=== PATIENT | male | born 1985 | race Caucasian/White ===

== ENCOUNTER 2020-01-27 19:44 | Emergency (ER) | payer MEDICAID ==
[~2020-01-27] VITALS: Ht 180.3 cm; Wt 81.8 kg
[~2020-01-27 19:44] MED LIST: CLIN150C8 PO; HYDR-4383 PO; ONDA8TAB13 PO
[2020-01-27 20:25] LABS: BASOPHILS # (AUTO) 0.1 X10'3 (0-0.2); BASOPHILS % (AUTO) 0.6 % (0-1); EOSINOPHILS # (AUTO) 0.1 X10'3 (0-0.9); EOSINOPHILS % (AUTO) 0.6 % (0-6); HEMATOCRIT 49.2 % (42.0-52.0); HEMOGLOBIN 16.9 g/dl (14.0-17.9); LYMPHOCYTES # (AUTO) 1.6 X10'3 (1.1-4.8); LYMPHOCYTES % (AUTO) 15.1 % (21-51); MEAN CORPUSCULAR HEMOGLOBIN 30.5 PG (27.0-31.0); MEAN CORPUSCULAR HGB CONC 34.3 g/dL (33.0-36.5); MEAN PLATELET VOLUME 7.7 FL (7.4-10.4); MONOCYTES # (AUTO) 0.5 X10'3 (0-0.9); MONOCYTES % (AUTO) 4.8 % (2-12); NEUTROPHILS # (AUTO) 8.2 X10'3 (1.8-7.7); NEUTROPHILS % (AUTO) 78.9 % (42-75); PLATELET COUNT 331 X10'3 (140-440); RED BLOOD COUNT 5.52 X10'6 (4.70-6.10); RED CELL DISTRIBUTION WIDTH 13.4 % (11.5-14.5); WHITE BLOOD COUNT 10.4 X10'3 (4.5-11.0)
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
[2020-01-27 20:44] LABS: ALANINE AMINOTRANSFERASE 23 U/L (12-78); ALBUMIN 4.3 G/DL (3.4-5.0); ALBUMIN/GLOBULIN RATIO 1.1 (1.1-1.5); ALKALINE PHOSPHATASE 58 IU/L (46-116); ANION GAP 8 (8-16); ASPARTATE AMINO TRANSFERASE 26 U/L (10-37); BILIRUBIN,TOTAL 0.4 MG/DL (0.1-1.0); BLOOD UREA NITROGEN 13 MG/DL (7-18); BUN/CREATININE RATIO 11.6 (5.4-32.0); CALCIUM 9.2 MG/DL (8.5-10.1); CHLORIDE 106 MMOL/L (99-107); CREATININE 1.12 MG/DL (0.60-1.10); GLUCOSE 102 MG/DL (70-104); POTASSIUM 3.8 MMOL/L (3.5-5.1); SODIUM 143 MMOL/L (135-145); TOTAL CARBON DIOXIDE 28.8 MMOL/L (24-32); TOTAL PROTEIN 8.2 G/DL (6.4-8.2); eGFR 76 ML/MIN
[2020-01-27 20:50] LABS: ETHANOL < 0.010 GM/DL (0.0-0.010)
[2020-01-27] MEDS ORDERED: LORazepam 1 MG tablet PO ONE (20:55)
[2020-01-27] MEDS ORDERED: diphenhydrAMINE 25mg capsule PO ONE (20:55)
[2020-01-27] MEDS ORDERED: OLANZapine 2.5MG tablet PO ONE (20:55)
--- NOTE | 2020-01-27 21:11 | NUR ---
Patient stands up, he is labile and loud at times, cussing at some unknown person about a woman. Zyprexa and Benadryl given PO. We are awaiting patient to void for a tox screen. Patient is drinking water.
[2020-01-27] MEDS ORDERED: ONDA4TAB12 PO (21:20)
[2020-01-27 21:44] LABS: CLARITY,URINE CLEAR (Clear); COLOR,URINE YELLOW (Yellow); GLUCOSE, URINE NEGATIVE (Neg); KETONES,URINE TRACE mg/dl (Neg); LEUKOCYTE ESTERASE ,URINE NEGATIVE (Neg); NITRITES, URINE NEGATIVE (Neg); OCCULT BLOOD,URINE NEGATIVE (Neg); PH,URINE 5.5 (4.8-8.0); PROTEIN,URINE TRACE mg/dl (Neg); UROBILINOGEN,URINE 0.2 E.U/dL (0.2-1.0)
[2020-01-27 21:47] LABS: UA COLLECTION TYPE VOIDED
[2020-01-27 21:49] LABS: BACTERIA,URINE 1+ /HPF (Neg); CAL OXALATE CRYSTALS 1+ /HPF (NEGATIVE); RBC,URINE NONE SEEN /HPF (0-2); SQUAMOUS EPITHELIAL CELL,UR FEW /LPF (FEW); WBC,URINE 0-4 /HPF (0-4)
[2020-01-27 22:01] LABS: URINE AMPHETAMINE SCREEN NEGATIVE (Neg); URINE BARBITUATE SCREEN NEGATIVE (Neg); URINE BENZODIAZEPINES SCREEN NEGATIVE (Neg); URINE CANNABINOID SCREEN POSITIVE (Neg); URINE COCAINE SCREEN NEGATIVE (Neg); URINE METHADONE SCREEN NEGATIVE (Neg); URINE OPIATE SCREEN NEGATIVE (Neg); URINE PHENCYCLIDINE SCREEN NEGATIVE (Neg)
--- NOTE | 2020-01-27 22:22 | NUR ---
Patient is now sleeping on his right side. Patients color is good. He is warm and dry.
--- NOTE | 2020-01-28 01:09 | NUR ---
Patient is sleeping quietly on his right side. No distress noted.
--- NOTE | 2020-01-28 02:05 | NUR ---
Terry Suicide Scoring not complete. Patient is not giving consistant statements at this time.
--- NOTE | 2020-01-28 02:18 | NUR ---
Patient is sleeping supine in bed. Frequent rounding for patient safety.
--- NOTE | 2020-01-28 06:37 | NUR ---
Nursing Note: Pt laying in bed, eyes closed, RR even and unlabored, no S&S of distress. Will continue to monitor.
--- NOTE | 2020-01-28 07:30 | NUR ---
Nursing Note: Pt laying in bed with eyes closed, RR even and unlabored, no S&S of distress, will continue to monitor.
--- NOTE | 2020-01-28 07:45 | NUR ---
Nursing Note: Unable to fully assess the [place] Suicide Severity Rating Scale. Pt responding to internal stimuli making a full assessment difficult.
[2020-01-28] MEDS ORDERED: OLANZapine 2.5MG tablet PO SCH (08:00)
--- NOTE | 2020-01-28 08:30 | NUR ---
Nursing Note: Pt sitting up in bed eating breakfast. He does not use utensils, but is picking up the scrambled eggs and potatoes with his fingers. Pt denies A/V H, but appears to be responding to internal stimuli. While sitting up in bed, he stares straight forward and seems to be talking to someone. Will continue to monitor.
[2020-01-28] MEDS ORDERED: OLANZapine 5mg rapidly disint. tablet PO ONE (09:25)
--- NOTE | 2020-01-28 09:30 | NUR ---
Nursing Note: Pt talking and yelling in bed, appears to be responding to internal stimuli. Notified Dr. Oreilly, received order for Zyprexa Zydis 5 mg PO. Pt also burping repetitively, he indicates this is intentional. He made a confusing statement that seems to indicate that is how he deals with people, unable to ascertain if he is talking about hallucinations or real people. Will continue to monitor.
--- NOTE | 2020-01-28 10:18 | NUR ---
Nursing Note: Pt laying in bed with his eyes open, he occasionally talks to himself. No S&S of distress, RR even and unlabored, will continue to monitor. Addendum: 01/28/20 at 1022 by PBROWN Amend: Pt mumbles to himself, difficult to understand. At one point, he made a comment about "electricity to the brain."
--- NOTE | 2020-01-28 12:13 | NUR ---
Nursing Note: Pt up to the restroom and returned to bed. He is sitting up in his bed, looking off to the side and talking to himself. No S&S of distress, will continue to monitor.
--- NOTE | 2020-01-28 12:58 | NUR ---
Nursing Note: Pt sitting up in bed, no S&S of distress, will continue to monitor.
[2020-01-28] MEDS ORDERED: LORazepam 2 mg/ml vial IM ONE (14:30)
[2020-01-28] MEDS ORDERED: diphenhydrAMINE 50 mg/ml inj IM ONE (14:30)
[2020-01-28] MEDS ORDERED: haloperidol lactate 5mg/ml inj IM ONE (14:30)
--- NOTE | 2020-01-28 15:12 | NUR ---
Nursing Note: Increased agitation, yelling and negative responses to internal stimuli. Notifed Dr. Junior, received order for Ativan 2mg, Benadryl 25 mg and Haldol 5 mg to be give IM. Pt readily accepted medication and verbalized hope that it would help. Pt not laying in bed, he is still talking, but not yelling. Will continue to monitor.
--- NOTE | 2020-01-28 15:45 | NUR ---
Nursing Note: Pt laying on his R side, eyes closed, no S&S of distress, will continue to monitor.
--- NOTE | 2020-01-28 17:11 | NUR ---
Nursing Note: Nurse to Nurse with Derick [facility]. He will present patient to provider. Will continue to monitor.
--- NOTE | 2020-01-28 17:23 | NUR ---
Nursing Note: Clarified with Dr. Guerra what type of cardiac monitoring he requires. He said that he would like continuous pulse oximetry following the administration of Haldol, Ativan, and Benedryl. Will continue to monitor.
--- NOTE | 2020-01-28 17:27 | NUR ---
Nursing Note: Pt laying in bed with a blanket covering his head. RR even and unlabored, no S&S of distress. Pulse ox finger probe attached, O2 level 97%. Will continue to monitor.
--- NOTE | 2020-01-28 20:59 | NUR ---
copmpleted nurse to nurse with [facility] [place]
--- NOTE | 2020-01-28 21:12 | NUR ---
Dunia from [facility] called. Pt was excepted at [facility] By Dennis MASSEY at 210. He will be transfered in the am of 01/28
[2020-01-29 05:57] VITALS: BP 113/64
[2020-01-29] MEDS ORDERED: diphenhydrAMINE 25mg capsule PO PRN (07:25)
[2020-01-29] MEDS ORDERED: OLANZapine 2.5MG tablet PO SCH (08:00)
--- NOTE | 2020-01-29 08:32 | NUR ---
[facility] CLAIMS ADJUDICATOR ETA [id number].
== END 2020-01-29 09:49 ==
LOC: ER 19:45
DX: R45.851 Suicidal ideations (principal); F12.90 Cannabis use, unspecified, uncomplicated; F15.90 Other stimulant use, unspecified, uncomplicated; F11.90 Opioid use, unspecified, uncomplicated; Z86.14 Personal history of Methicillin resistant Staphylococcus aureus infection; Z98.890 Other specified postprocedural states; Z56.0 Unemployment, unspecified; Z79.899 Other long term (current) drug therapy
CPT/HCPCS: 36415; 80053; 80305; 80320; 81001; 84443; 85025; 96372; 99285; J1200; J1630; J2060; Q0163

== ENCOUNTER 2023-06-02 21:19 | Emergency (ER) | payer MEDICAID ==
[~2023-06-02] VITALS: Ht 180.3 cm; Wt 131.8 kg
[2023-06-02 22:05] LABS: MEAN PLATELET VOLUME 8.4 FL (7.4-10.4); RED CELL DISTRIBUTION WIDTH 12.9 % (11.5-14.5)
[2023-06-02 22:07] LABS: BASOPHILS % (AUTO) 0.7 % (0-1); EOSINOPHILS # (AUTO) 0.2 X10'3 (0-0.9); HEMATOCRIT 44.4 % (42.0-52.0); HEMOGLOBIN 15.8 g/dl (14.0-17.9); LYMPHOCYTES # (AUTO) 1.6 X10'3 (1.1-4.8); LYMPHOCYTES % (AUTO) 23.8 % (21-51); MEAN CORPUSCULAR HEMOGLOBIN 30.6 PG (27.0-31.0); MEAN CORPUSCULAR HGB CONC 35.5 g/dL (33.0-36.5); MEAN CORPUSCULAR VOLUME 86.1 FL (78-98); MONOCYTES # (AUTO) 0.8 X10'3 (0-0.9); MONOCYTES % (AUTO) 12.2 % (2-12); NEUTROPHILS # (AUTO) 4.2 X10'3 (1.8-7.7); NEUTROPHILS % (AUTO) 60.3 % (42-75); PLATELET COUNT 271 X10'3 (140-440); RED BLOOD COUNT 5.16 X10'6 (4.70-6.10); WHITE BLOOD COUNT 6.9 X10'3 (4.5-11.0)
[2023-06-02 22:09] LABS: ALANINE AMINOTRANSFERASE 34 U/L (12-78); ALBUMIN/GLOBULIN RATIO 1.1 (1.1-1.5); ALKALINE PHOSPHATASE 73 IU/L (46-116); ANION GAP 11 (8-16); ASPARTATE AMINO TRANSFERASE 50 U/L (10-37); BILIRUBIN,TOTAL 0.8 MG/DL (0.1-1.0); BLOOD UREA NITROGEN 15 MG/DL (7-18); BUN/CREATININE RATIO 11.6 (10.0-20.0); CALCIUM 9.4 MG/DL (8.5-10.1); CHLORIDE 100 MMOL/L (99-107); CREATININE 1.29 MG/DL (0.60-1.10); GLUCOSE 127 MG/DL (70-104); POTASSIUM 3.1 MMOL/L (3.5-5.1); SODIUM 134 MMOL/L (135-145); TOTAL PROTEIN 7.8 G/DL (6.4-8.2); eCRCL 84 ML/MIN; eGFR 63 ML/MIN
[2023-06-02 22:11] LABS: URINE AMPHETAMINE SCREEN POSITIVE (Neg); URINE BARBITUATE SCREEN NEGATIVE (Neg); URINE BENZODIAZEPINES SCREEN NEGATIVE (Neg); URINE CANNABINOID SCREEN POSITIVE (Neg); URINE COCAINE SCREEN NEGATIVE (Neg); URINE METHADONE SCREEN NEGATIVE (Neg); URINE OPIATE SCREEN NEGATIVE (Neg); URINE PHENCYCLIDINE SCREEN NEGATIVE (Neg)
[2023-06-02 22:12] LABS: ETHANOL < 10 MG/DL (<10)
[2023-06-02] MEDS ORDERED: PALI6TAB6 PO (22:52)
[2023-06-02] MEDS ORDERED: DIVA-81 PO (22:54)
[2023-06-02] MEDS ORDERED: HYDR-3686 PO (22:54)
[2023-06-02] MEDS ORDERED: BUSP10TA11 PO (22:54)
[2023-06-02 23:14] LABS: THYROID STIMULATING HORMONE 0.63 ulU/ml (0.34-4.50)
[2023-06-02] MEDS ORDERED: hydrOXYzine 25 MG tablet PO PRN (23:20)
[2023-06-02] MEDS ORDERED: divalproex sod 250mg ER (24-hour) tablet PO SCH (23:21)
[2023-06-02] MEDS ORDERED: potassium Cl 20 mEq SR tablet PO STA (23:40)
[2023-06-02 23:47] LABS: VALPROATE < 3.0 UG/ML (50-100)
[2023-06-03] MEDS: busPIRone 15mg tablet PO SCH ×2 (00:01→09:04)
[2023-06-03 01:14] LABS: BILIRUBIN,URINE MODERATE (Neg); CLARITY,URINE TURBID (Clear); COLOR,URINE YELLOW (Yellow); GLUCOSE, URINE NEGATIVE (Neg); KETONES,URINE >=80 mg/dl (Neg); LEUKOCYTE ESTERASE ,URINE NEGATIVE (Neg); NITRITES, URINE NEGATIVE (Neg); OCCULT BLOOD,URINE TRACE-INTACT (Neg); PH,URINE 6.5 (4.8-8.0); PROTEIN,URINE TRACE mg/dl (Neg)
[2023-06-03 01:15] LABS: UA COLLECTION TYPE VOIDED
[2023-06-03 01:28] LABS: RBC,URINE NONE SEEN /HPF (0-2); WBC,URINE 0-4 /HPF (0-4)
[2023-06-03 01:35] LABS: MUCUS STRANDS NONE SEEN /LPF (Neg); SQUAMOUS EPITHELIAL CELL,UR FEW /LPF (FEW)
[2023-06-03 01:39] LABS: BACTERIA,URINE 2+ /HPF (Neg)
[2023-06-03] MEDS ORDERED: PALIPERIDONE 3 MG TAB.ER.24 PO SCH (08:00)
[2023-06-03 16:38] VITALS: BP 140/94; PULSE 57; RESP 16; TEMP 97.6; O2SAT 96
[2023-06-04] MEDS ORDERED: olanzapine 10mg tablet PO SCH (08:00)
== END 2023-06-03 14:30 | disposition admitted as inpatient to this hospital (09) ==
LOC: ER 21:21 → EEVIPCON 06-03 14:30 → ER 06-03 14:30 → ED HOLD 06-03 14:30 → UNDOADMIN 06-03 14:30
DX: R45.851 Suicidal ideations (principal); Z20.822 Contact with and (suspected) exposure to COVID-19; F12.90 Cannabis use, unspecified, uncomplicated; F15.90 Other stimulant use, unspecified, uncomplicated; F11.90 Opioid use, unspecified, uncomplicated; Z56.0 Unemployment, unspecified; Z86.14 Personal history of Methicillin resistant Staphylococcus aureus infection; Z59.00 Homelessness unspecified; Z98.890 Other specified postprocedural states; Z90.89 Acquired absence of other organs; Z79.899 Other long term (current) drug therapy
CPT/HCPCS: 36415; 80053; 80164; 80305; 80320; 81001; 84443; 85025; 87811; 99285; C2617; G0378

== ENCOUNTER 2023-06-13 00:04 | Emergency (ER) | payer MEDICAID ==
[~2023-06-13] VITALS: Ht 180.3 cm; Wt 129.0 kg
[~2023-06-13 00:04] MED LIST changes: +BUSP10TA11 PO; -CLIN150C8 PO; +DIVA-81 PO; +HYDR-3686 PO; -HYDR-4383 PO; -ONDA8TAB13 PO; +PALI6TAB6 PO
--- NOTE | 2023-06-13 02:42 | NUR ---
The patient is a 37 year old male who self presented for a mental health evaluation. He was discharged from [facility] on 06/06. He has a hx of schizoaffective disorder and methamphetamine use. He admits to meth use since his last dc. He currently is on a 30 day out from the [facility] and has been staying on the streets of [place]. He is hearing voices and states he is suicidal. He had a suicide attempt several years ago by hanging. He has poor community support. He has had poor compliance with his psychiatric medications.
[2023-06-13] MEDS ORDERED: hydrOXYzine 25 MG tablet PO PRN (03:00)
--- NOTE | 2023-06-13 03:19 | NUR ---
The patient is resting on his bed. He is responding to internal stimuli. He was cooperative with nursing staff. Labs drawn and urine collected. Snack given.
[2023-06-13 03:29] LABS: BILIRUBIN,URINE NEGATIVE (Neg); COLOR,URINE YELLOW (Yellow); GLUCOSE, URINE NEGATIVE (Neg); KETONES,URINE NEGATIVE (Neg); LEUKOCYTE ESTERASE ,URINE NEGATIVE (Neg); NITRITES, URINE NEGATIVE (Neg); OCCULT BLOOD,URINE NEGATIVE (Neg); PH,URINE 5.5 (4.8-8.0); PROTEIN,URINE NEGATIVE (Neg); UROBILINOGEN,URINE 0.2 E.U/dL (0.2-1.0)
[2023-06-13 03:33] LABS: BASOPHILS # (AUTO) 0.1 X10'3 (0-0.2); BASOPHILS % (AUTO) 0.7 % (0-1); EOSINOPHILS # (AUTO) 0.1 X10'3 (0-0.9); EOSINOPHILS % (AUTO) 1.7 % (0-6); HEMATOCRIT 44.7 % (42.0-52.0); HEMOGLOBIN 15.2 g/dl (14.0-17.9); LYMPHOCYTES # (AUTO) 2.2 X10'3 (1.1-4.8); LYMPHOCYTES % (AUTO) 25.4 % (21-51); MEAN CORPUSCULAR HEMOGLOBIN 29.9 PG (27.0-31.0); MEAN CORPUSCULAR HGB CONC 34.1 g/dL (33.0-36.5); MEAN CORPUSCULAR VOLUME 87.8 FL (78-98); MEAN PLATELET VOLUME 8.1 FL (7.4-10.4); MONOCYTES # (AUTO) 0.9 X10'3 (0-0.9); MONOCYTES % (AUTO) 11.1 % (2-12); NEUTROPHILS # (AUTO) 5.2 X10'3 (1.8-7.7); NEUTROPHILS % (AUTO) 61.1 % (42-75); PLATELET COUNT 316 X10'3 (140-440); RED BLOOD COUNT 5.09 X10'6 (4.70-6.10); RED CELL DISTRIBUTION WIDTH 13.2 % (11.5-14.5); WHITE BLOOD COUNT 8.5 X10'3 (4.5-11.0)
[2023-06-13 03:38] LABS: CLARITY,URINE SLIGHTLY CLOUDY (Clear); RBC,URINE 0-2 /HPF (0-2); UA COLLECTION TYPE CLN CATCH MIDSTREAM; WBC,URINE 0-4 /HPF (0-4)
[2023-06-13 03:39] LABS: BACTERIA,URINE FEW /HPF (Neg); CAL OXALATE CRYSTALS 3+ /HPF (NEGATIVE); MUCUS STRANDS NONE SEEN /LPF (Neg); SQUAMOUS EPITHELIAL CELL,UR NONE SEEN /LPF (FEW)
[2023-06-13 03:45] LABS: ALANINE AMINOTRANSFERASE 28 U/L (12-78); ALBUMIN 3.6 G/DL (3.4-5.0); ALBUMIN/GLOBULIN RATIO 1.1 (1.1-1.5); ALKALINE PHOSPHATASE 66 IU/L (46-116); ANION GAP 8 (8-16); ASPARTATE AMINO TRANSFERASE 25 U/L (10-37); BILIRUBIN,TOTAL 0.5 MG/DL (0.1-1.0); BLOOD UREA NITROGEN 13 MG/DL (7-18); BUN/CREATININE RATIO 10.5 (10.0-20.0); CALCIUM 8.9 MG/DL (8.5-10.1); CHLORIDE 101 MMOL/L (99-107); CREATININE 1.24 MG/DL (0.60-1.10); GLUCOSE 91 MG/DL (70-104); POTASSIUM 3.4 MMOL/L (3.5-5.1); SODIUM 136 MMOL/L (135-145); TOTAL CARBON DIOXIDE 26.9 MMOL/L (24-32); TOTAL PROTEIN 6.8 G/DL (6.4-8.2); eCRCL 88 ML/MIN; eGFR 66 ML/MIN
[2023-06-13 03:46] LABS: URINE AMPHETAMINE SCREEN POSITIVE (Neg); URINE BARBITUATE SCREEN NEGATIVE (Neg); URINE BENZODIAZEPINES SCREEN NEGATIVE (Neg); URINE CANNABINOID SCREEN POSITIVE (Neg); URINE COCAINE SCREEN NEGATIVE (Neg); URINE METHADONE SCREEN NEGATIVE (Neg); URINE OPIATE SCREEN NEGATIVE (Neg); URINE PHENCYCLIDINE SCREEN NEGATIVE (Neg)
[2023-06-13] MEDS ORDERED: potassium Cl 20 mEq SR tablet PO STA (03:46)
--- NOTE | 2023-06-13 04:21 | NUR ---
PACKET SENT TO [facility]
--- NOTE | 2023-06-13 05:30 | NUR ---
The patient appears to be sleeping
--- NOTE | 2023-06-13 07:06 | NUR ---
Patient sleeping on his left side. Nonlabored respirations, slightly snoring. No distress observed. Continue to monitor.
[2023-06-13] MEDS ORDERED: busPIRone 15mg tablet PO SCH (08:00)
[2023-06-13] MEDS ORDERED: PALIPERIDONE 3 MG TAB.ER.24 PO SCH (08:00)
[2023-06-13 08:10] VITALS: RESP 16
--- NOTE | 2023-06-13 09:10 | NUR ---
Patient eating breakfast. No distress observed. Continue to monitor.
[2023-06-13 09:30] VITALS: BP 119/76; PULSE 70; TEMP 97.4; O2SAT 95
--- NOTE | 2023-06-13 10:53 | NUR ---
Patient sleeping supine. Respirations equal and nonlabored. No distress observed. Continue to monitor.
--- NOTE | 2023-06-13 11:05 | NUR ---
[facility], evaluating patient. No distress observed. Continue to monitor.
--- NOTE | 2023-06-13 12:32 | NUR ---
Patient eating lunch. No distress observed. Continue to monitor.
--- NOTE | 2023-06-13 14:14 | NUR ---
Patient sleeping on his left side. No distress observed. Continue to monitor.
--- NOTE | 2023-06-13 16:00 | NUR ---
Patient with [facility] and on the phone with a faith who is willing to put patient up in a hotel for 2 days. [facility] will attempt to assist getting patient into a rehab facility. No distress observed. Continue to monitor.
[2023-06-13] MEDS ORDERED: divalproex sod 250mg ER (24-hour) tablet PO SCH (21:00)
== END 2023-06-13 16:46 | disposition home or self-care (01) ==
LOC: ER 00:05
DX: R45.851 Suicidal ideations (principal); Z20.822 Contact with and (suspected) exposure to COVID-19; F19.10 Other psychoactive substance abuse, uncomplicated; F15.10 Other stimulant abuse, uncomplicated; F12.10 Cannabis abuse, uncomplicated; Z56.0 Unemployment, unspecified; Z79.899 Other long term (current) drug therapy
CPT/HCPCS: 36415; 80053; 80305; 81001; 85025; 87811; 99285

== ENCOUNTER 2023-11-06 18:54 | Emergency (ER) | payer MEDICAID ==
[~2023-11-06] VITALS: Ht 180.3 cm; Wt 100.2 kg
[2023-11-06 19:06] VITALS: BP 108/62; PULSE 85; RESP 18; TEMP 98.2; O2SAT 96
[2023-11-11] MEDS ORDERED: AMOX-580 PO (16:00)
[2023-11-11] MEDS ORDERED: HALO5TAB PO (16:00)
[2023-11-11] MEDS ORDERED: PALI6TAB6 PO (16:00)
[2023-11-11] MEDS ORDERED: BUSP15TA7 PO (16:00)
[2023-11-11] MEDS ORDERED: DIVA500T9 PO (16:00)
[2023-11-11] MEDS ORDERED: DIVA-81 PO (16:01)
== END 2023-11-06 20:46 | disposition left against medical advice (07) ==
LOC: ER 18:55
DX: Z04.6 Encounter for general psychiatric examination, requested by authority (principal); Z53.21 Procedure and treatment not carried out due to patient leaving prior to being seen by health care provider
CPT/HCPCS: 99281

== ENCOUNTER 2024-01-09 00:12 | Emergency (ER) | payer MEDICAID ==
[~2024-01-09] VITALS: Ht 180.3 cm; Wt 77.0 kg
[~2024-01-09 00:12] MED LIST changes: +AMOX-580 PO; -BUSP10TA11 PO; +BUSP15TA7 PO; +DIVA500T9 PO; +HALO5TAB PO; -HYDR-3686 PO
[2024-01-09 02:33] LABS: EOSINOPHILS % (AUTO) 0.1 % (0-6); LYMPHOCYTES # (AUTO) 1.1 X10'3 (1.1-4.8); MONOCYTES # (AUTO) 0.8 X10'3 (0-0.9); MONOCYTES % (AUTO) 6.3 % (2-12)
[2024-01-09 02:35] LABS: BASOPHILS % (AUTO) 0.2 % (0-1); HEMATOCRIT 54.2 % (42.0-52.0); LYMPHOCYTES % (AUTO) 8.6 % (21-51); MEAN CORPUSCULAR HEMOGLOBIN 29.9 PG (27.0-31.0); MEAN CORPUSCULAR HGB CONC 34.5 g/dL (33.0-36.5); MEAN CORPUSCULAR VOLUME 86.7 FL (78-98); MEAN PLATELET VOLUME 8.4 FL (7.4-10.4); NEUTROPHILS # (AUTO) 11.1 X10'3 (1.8-7.7); NEUTROPHILS % (AUTO) 84.8 % (42-75); PLATELET COUNT 342 X10'3 (140-440); RED BLOOD COUNT 6.25 X10'6 (4.70-6.10); RED CELL DISTRIBUTION WIDTH 13.4 % (11.5-14.5); WHITE BLOOD COUNT 13.1 X10'3 (4.5-11.0)
[2024-01-09 02:37] LABS: HEMOGLOBIN 18.7 g/dl (14.0-17.9)
[2024-01-09 02:43] LABS: BILIRUBIN,URINE MODERATE (Neg); CLARITY,URINE CLOUDY (Clear); COLOR,URINE YELLOW (Yellow); GLUCOSE, URINE NEGATIVE (Neg); KETONES,URINE 15 mg/dl (Neg); LEUKOCYTE ESTERASE ,URINE NEGATIVE (Neg); NITRITES, URINE NEGATIVE (Neg); OCCULT BLOOD,URINE NEGATIVE (Neg); PROTEIN,URINE TRACE mg/dl (Neg); UROBILINOGEN,URINE 0.2 E.U/dL (0.2-1.0)
[2024-01-09 02:50] LABS: URINE AMPHETAMINE SCREEN POSITIVE (Neg); URINE BARBITUATE SCREEN NEGATIVE (Neg); URINE BENZODIAZEPINES SCREEN NEGATIVE (Neg); URINE CANNABINOID SCREEN POSITIVE (Neg); URINE COCAINE SCREEN NEGATIVE (Neg); URINE METHADONE SCREEN NEGATIVE (Neg); URINE OPIATE SCREEN NEGATIVE (Neg); URINE PHENCYCLIDINE SCREEN NEGATIVE (Neg)
[2024-01-09 02:52] LABS: UA COLLECTION TYPE CLN CATCH MIDSTREAM
[2024-01-09 02:53] LABS: BACTERIA,URINE FEW /HPF (Neg); SQUAMOUS EPITHELIAL CELL,UR FEW /LPF (FEW)
[2024-01-09 02:54] LABS: MUCUS STRANDS FEW /LPF (Neg); TRANSITIONAL EPI CELLS,URINE FEW /HPF
[2024-01-09 02:55] LABS: AMORPHOUS URATES 1+; CAL OXALATE CRYSTALS 1+ /HPF (NEGATIVE); HYALINE CASTS 0-3 /LPF (NEGATIVE)
[2024-01-09 02:56] LABS: ALBUMIN 4.9 G/DL (3.4-5.0); ANION GAP 15 (8-16); BLOOD UREA NITROGEN 16 MG/DL (7-18); CALCIUM 10.4 MG/DL (8.5-10.1); CHLORIDE 100 MMOL/L (99-107); CREATININE 1.46 MG/DL (0.60-1.10); GLUCOSE 82 MG/DL (70-104); POTASSIUM 4.4 MMOL/L (3.5-5.1); SODIUM 139 MMOL/L (135-145); TOTAL CARBON DIOXIDE 24.3 MMOL/L (24-32); eCRCL 74 ML/MIN; eGFR 54 ML/MIN
[2024-01-09 02:58] LABS: ETHANOL < 10 MG/DL (<10)
[2024-01-09] MEDS: LORazepam 1 MG tablet PO ONE (11:02)
[2024-01-09] MEDS: OLANZapine 5mg rapidly disint. tablet PO ONE (11:02)
[2024-01-09 13:32] LABS: ALANINE AMINOTRANSFERASE 28 U/L (12-78); ALBUMIN 4.1 G/DL (3.4-5.0); ALBUMIN/GLOBULIN RATIO 1.1 (1.1-1.5); ALKALINE PHOSPHATASE 59 IU/L (46-116); ANION GAP 10 (8-16); ASPARTATE AMINO TRANSFERASE 22 U/L (10-37); BILIRUBIN,TOTAL 0.7 MG/DL (0.1-1.0); BLOOD UREA NITROGEN 20 MG/DL (7-18); BUN/CREATININE RATIO 16.1 (10.0-20.0); CALCIUM 9.3 MG/DL (8.5-10.1); CHLORIDE 99 MMOL/L (99-107); CREATININE 1.24 MG/DL (0.60-1.10); GLUCOSE 90 MG/DL (70-104); POTASSIUM 3.5 MMOL/L (3.5-5.1); SODIUM 135 MMOL/L (135-145); TOTAL CARBON DIOXIDE 26.1 MMOL/L (24-32); eCRCL 87 ML/MIN; eGFR 66 ML/MIN
[2024-01-09] MEDS: PALIPERIDONE 3 MG TAB.ER.24 PO SCH (20:23)
[2024-01-09] MEDS: haloperidol 5mg tablet PO SCH (20:24)
[2024-01-09] MEDS: busPIRone 15mg tablet PO SCH (20:24)
[2024-01-09 20:44] VITALS: BP 107/64; PULSE 57; RESP 18; TEMP 97.4; O2SAT 100
[2024-01-09] MEDS ORDERED: DIVALPROEX SODIUM PO SCH (21:00)
[2024-01-09] MEDS ORDERED: divalproex sod 250mg ER (24-hour) tablet PO SCH (21:00)
== END 2024-01-09 20:55 ==
LOC: ER 00:13
DX: F99 Mental disorder, not otherwise specified (principal); Z20.822 Contact with and (suspected) exposure to COVID-19; Z73.6 Limitation of activities due to disability; F12.90 Cannabis use, unspecified, uncomplicated; Z79.899 Other long term (current) drug therapy; Z79.1 Long term (current) use of non-steroidal anti-inflammatories (NSAID); Z79.2 Long term (current) use of antibiotics; Z79.890 Hormone replacement therapy
CPT/HCPCS: 36415; 80048; 80053; 80305; 80320; 81001; 84443; 85025; 87811; 99285

== ENCOUNTER 2024-01-10 08:06 | Emergency (ER) | payer MEDICAID ==
[~2024-01-10] VITALS: Ht 180.3 cm; Wt 77.0 kg
[2024-01-10 08:20] VITALS: TEMP 97.7
[2024-01-10 08:42] LABS: BASOPHILS % (AUTO) 0.7 % (0-1); EOSINOPHILS # (AUTO) 0.1 X10'3 (0-0.9); EOSINOPHILS % (AUTO) 1.6 % (0-6); HEMATOCRIT 50.8 % (42.0-52.0); HEMOGLOBIN 17.6 g/dl (14.0-17.9); LYMPHOCYTES # (AUTO) 1.8 X10'3 (1.1-4.8); LYMPHOCYTES % (AUTO) 34.8 % (21-51); MEAN CORPUSCULAR HEMOGLOBIN 30.1 PG (27.0-31.0); MEAN CORPUSCULAR HGB CONC 34.6 g/dL (33.0-36.5); MEAN CORPUSCULAR VOLUME 86.9 FL (78-98); MEAN PLATELET VOLUME 8.5 FL (7.4-10.4); MONOCYTES # (AUTO) 0.4 X10'3 (0-0.9); MONOCYTES % (AUTO) 7.7 % (2-12); NEUTROPHILS # (AUTO) 2.9 X10'3 (1.8-7.7); NEUTROPHILS % (AUTO) 55.2 % (42-75); PLATELET COUNT 282 X10'3 (140-440); RED BLOOD COUNT 5.85 X10'6 (4.70-6.10); WHITE BLOOD COUNT 5.2 X10'3 (4.5-11.0)
[2024-01-10 08:50] LABS: ANION GAP 11 (8-16); BLOOD UREA NITROGEN 17 MG/DL (7-18); BUN/CREATININE RATIO 13.3 (10.0-20.0); CHLORIDE 99 MMOL/L (99-107); CREATININE 1.28 MG/DL (0.60-1.10); GLUCOSE 130 MG/DL (70-104); POTASSIUM 3.4 MMOL/L (3.5-5.1); SODIUM 137 MMOL/L (135-145); TOTAL CARBON DIOXIDE 27.1 MMOL/L (24-32); eCRCL 84 ML/MIN; eGFR 63 ML/MIN
[2024-01-10 09:09] LABS: BILIRUBIN,URINE SMALL (Neg); CLARITY,URINE SLIGHTLY CLOUDY (Clear); COLOR,URINE YELLOW (Yellow); GLUCOSE, URINE NEGATIVE (Neg); KETONES,URINE TRACE mg/dl (Neg); LEUKOCYTE ESTERASE ,URINE NEGATIVE (Neg); NITRITES, URINE NEGATIVE (Neg); OCCULT BLOOD,URINE NEGATIVE (Neg); PROTEIN,URINE NEGATIVE (Neg); UROBILINOGEN,URINE 0.2 E.U/dL (0.2-1.0)
[2024-01-10 09:11] LABS: UA COLLECTION TYPE VOIDED
[2024-01-10] MEDS: normal saline 1000ml 1,000 ML IV ONE ×2 (09:15→09:16)
[2024-01-10 09:27] LABS: BACTERIA,URINE 1+ /HPF (Neg); CAL OXALATE CRYSTALS FEW /HPF (NEGATIVE); HYALINE CASTS 0-3 /LPF (NEGATIVE); MUCUS STRANDS MODERATE /LPF (Neg); SQUAMOUS EPITHELIAL CELL,UR FEW /LPF (FEW); TRANSITIONAL EPI CELLS,URINE FEW /HPF
[2024-01-10 09:31] LABS: RBC,URINE NONE SEEN /HPF (0-2); WBC,URINE 0-4 /HPF (0-4)
[2024-01-10 09:39] LABS: AMORPHOUS URATES 1+; URINE AMPHETAMINE SCREEN POSITIVE (Neg); URINE BARBITUATE SCREEN NEGATIVE (Neg); URINE BENZODIAZEPINES SCREEN NEGATIVE (Neg); URINE CANNABINOID SCREEN POSITIVE (Neg); URINE COCAINE SCREEN NEGATIVE (Neg); URINE METHADONE SCREEN NEGATIVE (Neg); URINE OPIATE SCREEN NEGATIVE (Neg); URINE PHENCYCLIDINE SCREEN NEGATIVE (Neg)
[2024-01-10 12:40] VITALS: BP 121/71; PULSE 63; RESP 16; O2SAT 100
== END 2024-01-10 15:27 ==
LOC: ER 08:07
DX: R41.82 Altered mental status, unspecified (principal); F12.90 Cannabis use, unspecified, uncomplicated; Z56.0 Unemployment, unspecified; Z98.890 Other specified postprocedural states; Z90.89 Acquired absence of other organs; Z79.899 Other long term (current) drug therapy
CPT/HCPCS: 36415; 80048; 80305; 81001; 82948; 85025; 93005; 96360; 99285; J7030